=== PATIENT | male | born 1975 | race Caucasian/White ===

== ENCOUNTER 2017-02-15 13:25 | Emergency (ER) | payer BC, OTHER ==
[~2017-02-15] VITALS: Ht 180.3 cm; Wt 120.2 kg
[~2017-02-15 13:25] MED LIST: OXYC-323 PO; SULF1TAB23 PO
[2017-02-15] MEDS ORDERED: ONDANSETRON PF 4 MG/2 ML VIAL. IV ONE ×2 (13:45→14:15)
[2017-02-15] MEDS ORDERED: IV NORMAL SALINE 1000ML BAG 1,000 ML IV ONE (13:45)
[2017-02-15] MEDS ORDERED: MORPHINE SULFATE 10 MG/ML VIAL. IV ONE (13:45)
[2017-02-15 14:00] VITALS: BP 167/90
[2017-02-15 14:00] LABS: BASO % 0 % (0-3); EOS % 0 % (0-3); HEMATOCRIT 45.5 % (39.0-53.0); LYMPH # 2.1 x10^3/uL (1.0-4.8); LYMPH % 16 % (24-48); MEAN CORPUSCULAR HEMOGLOBIN 28 pg (25-35); MEAN CORPUSCULAR HGB CONC 33 g/dL (31-37); MEAN CORPUSCULAR VOLUME 84 fL (79-100); MONO % 3 % (0-9); NEUT % 80 % (31-73); PLATELET COUNT 292 x10^3/uL (140-400); RED BLOOD COUNT 5.41 x10^6/uL (4.30-5.70); RED CELL DISTRIBUTION WIDTH 14.3 % (11.5-14.5); WHITE BLOOD COUNT 13.5 x10^3/uL (4.0-11.0)
[2017-02-15] MEDS ORDERED: IOHEXOL 300 MG/ML 75 ML VIAL IV ONE (14:00)
[2017-02-15 14:13] LABS: CALCIUM 9.1 mg/dL (8.5-10.1); CREATININE 0.9 mg/dL (0.7-1.3); POTASSIUM 3.2 mmol/L (3.5-5.1)
[2017-02-15] MEDS ORDERED: PROMETHAZINE 12.5 MG in IV NORMAL SALINE 50ML 50 ML IV ONE (14:15)
[2017-02-15 14:17] LABS: ALBUMIN 3.8 g/dL (3.4-5.0); TOTAL BILIRUBIN 0.5 mg/dL (0.2-1.0); TOTAL PROTEIN 7.7 g/dL (6.4-8.2)
[2017-02-15] MEDS ORDERED: HYDROmorphone 2 MG/ML VIAL IV ONE ×3 (14:30→17:00)
--- NOTE | 2017-02-15 14:42 | PHYS DOC ---
Past Medical History Past Medical History: Kidney Stone Past Surgical History: Other Additional Past Surgical Histo: rectal, hernia, colostomy reversal Alcohol Use: None Drug Use: None Adult General Chief Complaint Chief Complaint: ABDOMINAL PAIN HPI HPI Patient is a 41 year old male who presents with right lower quadrant abdominal pain rated at 10 out of 10 with nausea and vomiting that began 3 days ago. Patient states sometime in November he had hernia repair and colon resection with colostomy removal at [facility]. Patient denies any fever. He states he has history of kidney stones. Review of Systems Review of Systems Constitutional: Denies fever or chills [] Eyes: Denies change in visual acuity, redness, or eye pain [] HENT: Denies nasal congestion or sore throat [] Respiratory: Denies cough or shortness of breath [] Cardiovascular: No additional information not addressed in HPI [] GI: Right lower quadrant abdominal pain : Denies dysuria or hematuria [] Musculoskeletal: Denies back pain or joint pain [] Integument: Denies rash or skin lesions [] Neurologic: Denies headache, focal weakness or sensory changes [] Endocrine: Denies polyuria or polydipsia [] Current Medications Current Medications Current Medications Medications (Trade) Dose Ordered Sig/Tayler Start Time Stop Time Status Last Admin Dose Admin Hydromorphone HCl (Dilaudid) 1 mg 1X ONCE 02/15/17 17:00 02/15/17 17:01 DC Iohexol (Omnipaque 300 Mg/ml) 75 ml 1X ONCE 02/15/17 14:00 02/15/17 14:01 DC 02/15/17 14:27 75 ML Morphine Sulfate 5 mg 1X ONCE 02/15/17 13:45 02/15/17 13:46 DC 02/15/17 13:54 5 MG Ondansetron HCl (Zofran) 4 mg 1X ONCE 02/15/17 14:15 02/15/17 14:16 DC 02/15/17 14:10 4 MG Promethazine HCl 12.5 mg/Sodium Chloride 50.5 ml @ 101 mls/hr 1X ONCE 02/15/17 14:15 02/15/17 14:44 DC 02/15/17 14:12 101 MLS/HR Sodium Chloride 1,000 ml @ 1,000 mls/hr 1X ONCE 02/15/17 13:45 02/15/17 14:44 DC 02/15/17 13:57 1,000 MLS/HR Tamsulosin HCl (Flomax) 0.4 mg 1X ONCE 02/15/17 17:00 02/15/17 17:01 DC Allergies Allergies Allergies Coded Allergies Type Severity Reaction Last Updated Verified No Known Drug Allergies 01/28/15 No Physical Exam Physical Exam Constitutional: Well developed, well nourished, patient is writhing in pain. He appears diaphoretic. HENT: Normocephalic, atraumatic, bilateral external ears normal, oropharynx moist, no oral exudates, nose normal. [] Eyes: PERRLA, EOMI, conjunctiva normal, no discharge. [] Neck: Normal range of motion, no tenderness, supple, no stridor. [] Cardiovascular:Heart rate regular rhythm, no murmur [] Lungs & Thorax: Bilateral breath sounds clear to auscultation [] Abdomen: Obese abdomen. Surgical incision noted me denied lower abdomen as well as left lower quadrant. Mild tenderness on palpation of the right mid abdomen and right lower quadrant. Negative Mata sign, negative psoas sign, negative obturator sign. Patient is guarding his flank region. No obvious abdominal masses. Skin: Warm, dry, no erythema, no rash. [] Back: No tenderness, no CVA tenderness. [] Extremities: No tenderness, no cyanosis, no clubbing, ROM intact, no edema. [] Neurologic: Alert and oriented X 3, normal motor function, normal sensory function, no focal deficits noted. [] Psychologic: Affect normal, judgement normal, mood normal. [] Current Patient Data Vital Signs Vital Signs Date Time Temp Pulse Resp B/P (MAP) Pulse Ox O2 Delivery O2 Flow Rate FiO2 02/15/17 15:16 Room Air 02/15/17 13:35 98.0 67 32 148/97 (114) 92 98.0 Lab Values Laboratory Tests Test 02/15/17 13:50 02/15/17 15:20 White Blood Count 13.5 x10^3/uL (4.0-11.0) H Red Blood Count 5.41 x10^6/uL (4.30-5.70) Hemoglobin 15.0 g/dL (13.0-17.5) Hematocrit 45.5 % (39.0-53.0) Mean Corpuscular Volume 84 fL (79-100) Mean Corpuscular Hemoglobin 28 pg (25-35) Mean Corpuscular Hemoglobin Concent 33 g/dL (31-37) Red Cell Distribution Width 14.3 % (11.5-14.5) Platelet Count 292 x10^3/uL (140-400) Neutrophils (%) (Auto) 80 % (31-73) H Lymphocytes (%) (Auto) 16 % (24-48) L Monocytes (%) (Auto) 3 % (0-9) Eosinophils (%) (Auto) 0 % (0-3) Basophils (%) (Auto) 0 % (0-3) Neutrophils # (Auto) 10.9 x10^3uL (1.8-7.7) H Lymphocytes # (Auto) 2.1 x10^3/uL (1.0-4.8) Monocytes # (Auto) 0.4 x10^3/uL (0.0-1.1) Eosinophils # (Auto) 0.0 x10^3/uL (0.0-0.7) Basophils # (Auto) 0.0 x10^3/uL (0.0-0.2) Sodium Level 143 mmol/L (136-145) Potassium Level 3.2 mmol/L (3.5-5.1) L Chloride Level 107 mmol/L (98-107) Carbon Dioxide Level 23 mmol/L (21-32) Anion Gap 13 (6-14) Blood Urea Nitrogen 9 mg/dL (8-26) Creatinine 0.9 mg/dL (0.7-1.3) Estimated GFR (Cockcroft-Gault) 93.0 BUN/Creatinine Ratio 10 (6-20) Glucose Level 133 mg/dL (70-99) H Calcium Level 9.1 mg/dL (8.5-10.1) Total Bilirubin 0.5 mg/dL (0.2-1.0) Aspartate Amino Transferase (AST) 17 U/L (15-37) Alanine Aminotransferase (ALT) 21 U/L (16-63) Alkaline Phosphatase 99 U/L (46-116) Total Protein 7.7 g/dL (6.4-8.2) Albumin 3.8 g/dL (3.4-5.0) Albumin/Globulin Ratio 1.0 (1.0-1.7) Ethyl Alcohol Level < 10 mg/dL (0-10) Urine Collection Type Unknown Urine Color Red Urine Clarity Cloudy Urine pH 5.5 Urine Specific [place] >=1.030 Urine Protein 100 mg/dL (NEG-TRACE) Urine Glucose (UA) Negative mg/dL (NEG) Urine Ketones (Stick) Trace mg/dL (NEG) Urine Blood Large (NEG) Urine Nitrite Negative (NEG) Urine Bilirubin Negative (NEG) Urine Urobilinogen Dipstick 0.2 mg/dL (0.2 mg/dL) Urine Leukocyte Esterase Small (NEG) Urine RBC Tntc /HPF (0-2) Urine WBC 5-10 /HPF (0-4) Urine Bacteria 0 /HPF (0-FEW) Urine Mucus Mod /LPF Urine Opiates Screen Pos (NEG) Urine Methadone Screen Neg (NEG) Urine Barbiturates Neg (NEG) Urine Phencyclidine Screen Neg (NEG) Urine Amphetamine/Methamphetamine Neg (NEG) Urine Benzodiazepines Screen Neg (NEG) Urine Cocaine Screen Neg (NEG) Urine Cannabinoids Screen Neg (NEG) Urine Ethyl Alcohol Neg (NEG) Laboratory Tests 02/15/17 13:50 Laboratory Tests 02/15/17 13:50 EKG EKG [] Radiology/Procedures Radiology/Procedures []PROCEDURE: CT ABD PELV W/ IV CONTRST ONLY CT of the abdomen and pelvis with contrast, 02/15/2017: History: Abdominal pain and weakness Multidetector CT imaging was performed following an IV bolus injection of iodinated contrast material. No oral contrast material was administered for this exam. No hepatic abnormality is detected. There are faint radiopacities, one of which is rim-like in configuration, within the dependent aspect of the gallbladder compatible with gallstones. No pericholecystic edema is seen. The pancreas is unremarkable. The spleen is of normal size. Two small intrarenal calculi are present on the left, the largest of which measures 4 mm. The left renal collecting system and left ureter are not dilated. On the right there is mild dilatation of the renal pelvis. This is due to a 4 mm calculus in the proximal right ureter located at the L3-4 level. The distal right ureter is unremarkable. The partially filled urinary bladder shows no abnormality. There is mild aortic calcific plaquing without evidence of aneurysm. No abdominal or pelvic adenopathy is seen. There are surgical sutures related to the mid sigmoid colon. There is a small diverticular-like outpouching at this level with sutures along its margins. The bowel loops are not dilated. The appendix is not visualized and may be surgically absent. No dilated appendix is seen. No free fluid or free air is evident in the abdomen or pelvis. A linear radiopacity in the anal region is probably a suture line. There is streaky increased density in the anterior abdominal wall near the midline and to the left of midline at the mid pelvic level.. This probably represents postsurgical scarring, although active inflammation cannot be excluded. No abnormal fluid collection is seen in these regions. There are moderate scattered degenerative changes in the spine. There is a mixed lytic and sclerotic process within the L3 vertebral body. This pattern of densities raises the possibility of a hemangioma. There is an associated disruption of the cortex posteriorly at the level of the basivertebral foramen, raising the possibility of an aggressive hemangioma. IMPRESSION: 1. Small obstructing calculus in the proximal right ureter. 2. Small nonobstructing intrarenal calculi on the left. 3. Cholelithiasis. 4. Postsurgical change involving the sigmoid colon with a small diverticular-type outpouching at the level of the suture line. 5. Postsurgical changes involving the anterior abdominal wall at the pelvic level. 6. Mixed lytic and sclerotic process in the L3 vertebral body raising the possibility of an aggressive hemangioma versus a metastasis. Given this patient's surgical history, he is likely to have had previous CT studies, and comparison with those exams if available would be most useful in evaluation of stability of this lesion. PQRS Compliance Statement: One or more of the following individualized dose reduction techniques were utilized for this examination: 1. Automated exposure control 2. Adjustment of the mA and/or kV according to patient size 3. Use of iterative reconstruction technique DICTATED and SIGNED BY: JORGE COLÓN MD DATE: 02/15/17 1183 CC: SANJUANA DOUGLASS APRN; NO PCP ~ Course & Med Decision Making Course & Med Decision Making Pertinent Labs and Imaging studies reviewed. (See chart for details) Patient is in the ED with right lower quadrant abdominal pain with nausea and vomiting that began 3 days ago. Patient was uncomfortable writhing in pain when he arrived. He was given morphine with no relief, he was given Dilaudid and Zofran and promethazine with very good relief. CBC with a WBC of 13.5, CMP lipase with no acute findings. Urine positive for large amount of blood and small amount of leukocytes. CT of the abdomen and pelvic results below IMPRESSION: 1. Small obstructing calculus in the proximal right ureter. 2. Small nonobstructing intrarenal calculi on the left. 3. Cholelithiasis. 4. Postsurgical change involving the sigmoid colon with a small diverticular-type outpouching at the level of the suture line. 5. Postsurgical changes involving the anterior abdominal wall at the pelvic level. 6. Mixed lytic and sclerotic process in the L3 vertebral body raising the possibility of an aggressive hemangioma versus a metastasis. Given this patient's surgical history, he is likely to have had previous CT studies, and comparison with those exams if available would be most useful in evaluation of stability of this lesion. Considering the above information I talked to patient about staying in the hospital. Patient states he has passed multiple kidney stones before and would like to be discharged with pain medicine and nausea medicine. Patient was discharged with oxycodone, Flomax promethazine and Zofran. He also given a prescription for Flomax. He is to follow-up with his own doctor or urologist excrete. He was instructed to return to the ED if symptoms worsen. Dragon Disclaimer Dragon Disclaimer This electronic medical record was generated, in whole or in part, using a voice recognition dictation system. Departure Departure Impression: Primary Impression: Pyelonephritis Additional Impressions: Kidney stone on left side Cholelithiasis Disposition: HOME, SELF-CARE Condition: STABLE Referrals: NO PCP (PCP) DEVON KOEHLER STEVE W MD Follow-up with your doctor or the provided urologist next week Patient Instructions: Kidney Stones, Pyelonephritis, Adult, [id number] Additional Instructions: You were seen for pyelonephritis and kidney stones. Please take the prescribed antibiotics to completion. Please come to the ED at any point symptoms worsen. Follow-up with your doctor on Saturday. Scripts Oxycodone/Apap 5-325 (PERCOCET 5-325 MG TABLET) 1 Each Tablet 1-2 TAB PO Q4-6HRS, #40 TAB Prov: SANJUANA DOUGLASS [employer] 02/15/17 Promethazine Hcl (PROMETHAZINE HCL) 25 Mg Tablet 1 TAB PO PRN Q6HRS, #20 TAB Prov: SANJUANA DOUGLASS APRN 02/15/17 Tamsulosin Hcl (FLOMAX) 0.4 Mg Cap.er.24h 1 CAP PO DAILY, #7 CAP 11 Refills Prov: SANJUANA DOUGLASS APRN 02/15/17 Ciprofloxacin Hcl (CIPRO) 500 Mg Tablet 1 TAB PO BID, #14 TAB Prov: SANJUANA DOUGLASS APRN 02/15/17 Ondansetron (ZOFRAN ODT) 4 Mg Tab.rapdis 1 TAB SL Q8HRS, #15 TAB Prov: SANJUANA DOUGLASS APRN 02/15/17 Problem Qualifiers Additional Impressions: Cholelithiasis Cholelithiasis location: gallbladder Cholecystitis presence: without cholecystitis Biliary obstruction: with biliary obstruction Qualified Codes: K80.21 - Calculus of gallbladder without cholecystitis with obstruction SANJUANA DOUGLASS APRN Feb 15, 2017 14:42
--- NOTE | 2017-02-15 15:16 | RAD ---
CT of the abdomen and pelvis with contrast, 02/15/2017: History: Abdominal pain and weakness Multidetector CT imaging was performed following an IV bolus injection of iodinated contrast material. No oral contrast material was administered for this exam. No hepatic abnormality is detected. There are faint radiopacities, one of which is rim-like in configuration, within the dependent aspect of the gallbladder compatible with gallstones. No pericholecystic edema is seen. The pancreas is unremarkable. The spleen is of normal size. Two small intrarenal calculi are present on the left, the largest of which measures 4 mm. The left renal collecting system and left ureter are not dilated. On the right there is mild dilatation of the renal pelvis. This is due to a 4 mm calculus in the proximal right ureter located at the L3-4 level. The distal right ureter is unremarkable. The partially filled urinary bladder shows no abnormality. There is mild aortic calcific plaquing without evidence of aneurysm. No abdominal or pelvic adenopathy is seen. There are surgical sutures related to the mid sigmoid colon. There is a small diverticular-like outpouching at this level with sutures along its margins. The bowel loops are not dilated. The appendix is not visualized and may be surgically absent. No dilated appendix is seen. No free fluid or free air is evident in the abdomen or pelvis. A linear radiopacity in the anal region is probably a suture line. There is streaky increased density in the anterior abdominal wall near the midline and to the left of midline at the mid pelvic level.. This probably represents postsurgical scarring, although active inflammation cannot be excluded. No abnormal fluid collection is seen in these regions. There are moderate scattered degenerative changes in the spine. There is a mixed lytic and sclerotic process within the L3 vertebral body. This pattern of densities raises the possibility of a hemangioma. There is an associated disruption of the cortex posteriorly at the level of the basivertebral foramen, raising the possibility of an aggressive hemangioma. IMPRESSION: 1. Small obstructing calculus in the proximal right ureter. 2. Small nonobstructing intrarenal calculi on the left. 3. Cholelithiasis. 4. Postsurgical change involving the sigmoid colon with a small diverticular-type outpouching at the level of the suture line. 5. Postsurgical changes involving the anterior abdominal wall at the pelvic level. 6. Mixed lytic and sclerotic process in the L3 vertebral body raising the possibility of an aggressive hemangioma versus a metastasis. Given this patient's surgical history, he is likely to have had previous CT studies, and comparison with those exams if available would be most useful in evaluation of stability of this lesion. PQRS Compliance Statement: One or more of the following individualized dose reduction techniques were utilized for this examination: 1. Automated exposure control 2. Adjustment of the mA and/or kV according to patient size 3. Use of iterative reconstruction technique
[2017-02-15 15:40] LABS: BARBITURATES NEG (NEG); BENZODIAZEPINES NEG (NEG); CANNABINOIDS NEG (NEG); COCAINE NEG (NEG); METHADONE NEG (NEG); OPIATES POS (NEG); PHENCYCLIDINE NEG (NEG)
[2017-02-15 15:46] LABS: BILIRUBIN,URINE NEGATIVE (NEG); GLUCOSE,URINE NEGATIVE (NEG); NITRITE,URINE NEGATIVE (NEG); PH,URINE 5.5; PROTEIN,URINE 100 mg/dL (NEG-TRACE); UROBILINOGEN,URINE 0.2 mg/dL (0.2 mg/dL)
[2017-02-15 15:54] LABS: BACTERIA,URINE 0 /HPF (0-FEW); RBC,URINE TNTC /HPF (0-2)
[2017-02-15] MEDS ORDERED: CIPR500T94 PO (16:57)
[2017-02-15] MEDS ORDERED: ONDA4TAB10 SL (16:57)
[2017-02-15] MEDS ORDERED: PROM25TA10 PO (16:57)
[2017-02-15] MEDS ORDERED: TAMS0.4C97 PO (16:57)
[2017-02-15] MEDS ORDERED: TAMSULOSIN 0.4 MG CAP.ER.24H. PO ONE (17:00)
[2017-02-15] MEDS ORDERED: OXYC-323 PO (17:03)
== END 2017-02-15 17:02 | disposition home or self-care (01) ==
LOC: ER 13:25
DX: N12 Tubulo-interstitial nephritis, not specified as acute or chronic (principal); K80.20 Calculus of gallbladder without cholecystitis without obstruction; N20.0 Calculus of kidney; Z93.3 Colostomy status; Z98.890 Other specified postprocedural states
CPT/HCPCS: 36415; 74177; 80053; 80305; 80320; 81001; 85027; 87086; 96365; 96375; 96376; 99285; G0480; J1170; J2270; J2405; J2550; J7030; Q9967; G0481

== ENCOUNTER 2017-02-17 13:24 | Inpatient (IN) | payer OTHER ==
[~2017-02-17] VITALS: Ht 180.3 cm; Wt 127.0 kg
[~2017-02-17 13:24] MED LIST changes: +CIPR500T94 PO; +ONDA4TAB10 SL; +PROM25TA10 PO; +TAMS0.4C97 PO
[2017-02-17] MEDS ORDERED: IV NORMAL SALINE 1000ML BAG 1,000 ML IV SCH (13:44)
[2017-02-17 14:01] LABS: BASO % 0 % (0-3); EOS % 0 % (0-3); HEMATOCRIT 42.5 % (39.0-53.0); LYMPH # 1.3 x10^3/uL (1.0-4.8); LYMPH % 9 % (24-48); MEAN CORPUSCULAR HEMOGLOBIN 28 pg (25-35); MEAN CORPUSCULAR HGB CONC 33 g/dL (31-37); MEAN CORPUSCULAR VOLUME 85 fL (79-100); MONO % 3 % (0-9); NEUT % 87 % (31-73); PLATELET COUNT 283 x10^3/uL (140-400); RED BLOOD COUNT 5.02 x10^6/uL (4.30-5.70); WHITE BLOOD COUNT 14.2 x10^3/uL (4.0-11.0)
[2017-02-17] MEDS: fentaNYL PF VIAL 100 MCG/2 ML VIAL IV PRN ×3 (14:03→15:17)
[2017-02-17 14:13] LABS: CALCIUM 8.8 mg/dL (8.5-10.1); GFR 82.3; POTASSIUM 3.8 mmol/L (3.5-5.1)
[2017-02-17 14:32] LABS: BILIRUBIN,URINE SMALL (NEG); GLUCOSE,URINE NEGATIVE (NEG); NITRITE,URINE NEGATIVE (NEG); PROTEIN,URINE 30 mg/dL (NEG-TRACE); UROBILINOGEN,URINE 0.2 mg/dL (0.2 mg/dL)
[2017-02-17 14:37] LABS: BACTERIA,URINE 0 /HPF (0-FEW); RBC,URINE 20-40 /HPF (0-2); WBC,URINE OCC /HPF (0-4)
[2017-02-17 14:48] LABS: % BASOS 1 % (0-3)
[2017-02-17 14:49] LABS: PLT ESTIMATE ADEQUATE (ADEQUATE)
--- NOTE | 2017-02-17 15:22 | PHYS DOC ---
Past Medical History Past Medical History: Kidney Stone Past Surgical History: Other Additional Past Surgical Histo: rectal, hernia, colostomy reversal Alcohol Use: None Drug Use: None Adult General Chief Complaint Chief Complaint: FLANK PAIN HPI HPI 41-year-old male presenting to the emergency department today with flank pain. His flank pain is on the right. His pain is sharp severe intermittent. It is not alleviated by oxycodone. No exacerbating factors. Associated with hematuria. He was diagnosed with a kidney stone recently however he returns after his oral pain medications were not helping. Review of systems is negative for chest pain shortness of breath. Positive for nausea without vomiting. All other review of systems is negative unless otherwise noted in history of present illness. ED course: 41-year-old male presenting to the emergency department with right flank pain. Symptomatology consistent with previously diagnosed nephrolithiasis. IV fluids and nausea and pain medication given. Review of Systems Review of Systems SEE ABOVE. Current Medications Current Medications Current Medications Medications (Trade) Dose Ordered Sig/Tayler Start Time Stop Time Status Last Admin Dose Admin Fentanyl Citrate (Fentanyl 2ml Vial) 25 mcg PRN Q15MIN PRN 02/17/17 13:45 02/18/17 13:44 02/17/17 15:17 25 MCG Sodium Chloride 1,000 ml @ 1,000 mls/hr Q1H 02/17/17 13:44 02/17/17 14:43 DC 02/17/17 14:03 1,000 MLS/HR Allergies Allergies Allergies Coded Allergies Type Severity Reaction Last Updated Verified No Known Drug Allergies 01/28/15 No Physical Exam Physical Exam Constitutional: Well developed, well nourished, no acute distress, non-toxic appearance. [] HENT: Normocephalic, atraumatic, bilateral external ears normal, oropharynx moist, no oral exudates, nose normal. Eyes: PERRLA, EOMI, conjunctiva normal, no discharge. [] Neck: Normal range of motion, no tenderness, supple, no stridor. Cardiovascular:Heart rate regular rhythm, no murmur [] Lungs & Thorax: Bilateral breath sounds clear to auscultation Abdomen: Bowel sounds normal, soft, no tenderness, no masses, no pulsatile masses. [] Skin: Warm, dry, no erythema, no rash. [] Back: No tenderness, right cva tenderness. Extremities: No tenderness, no cyanosis, no clubbing, ROM intact, no edema. Neurologic: Alert and oriented X 3, normal motor function, normal sensory function, no focal deficits noted. [] Psychologic: Affect normal, judgement normal, mood normal. [] Current Patient Data Vital Signs Vital Signs Date Time Temp Pulse Resp B/P (MAP) Pulse Ox O2 Delivery O2 Flow Rate FiO2 02/17/17 15:17 21 100 Room Air 02/17/17 13:36 97.7 74 157/90 (112) 97.7 Lab Values Laboratory Tests Test 02/17/17 13:25 02/17/17 13:50 Urine Collection Type Unknown Urine Color My[place]ha Urine Clarity Clear Urine pH 5.0 Urine Specific [place] >=1.030 Urine Protein 30 mg/dL (NEG-TRACE) Urine Glucose (UA) Negative mg/dL (NEG) Urine Ketones (Stick) Trace mg/dL (NEG) Urine Blood Large (NEG) Urine Nitrite Negative (NEG) Urine Bilirubin Small (NEG) Urine Urobilinogen Dipstick 0.2 mg/dL (0.2 mg/dL) Urine Leukocyte Esterase Negative (NEG) Urine RBC 20-40 /HPF (0-2) Urine WBC Occ /HPF (0-4) Urine Bacteria 0 /HPF (0-FEW) Urine Hyaline Casts Few /HPF Urine Mucus Marked /LPF White Blood Count 14.2 x10^3/uL (4.0-11.0) H Red Blood Count 5.02 x10^6/uL (4.30-5.70) Hemoglobin 14.0 g/dL (13.0-17.5) Hematocrit 42.5 % (39.0-53.0) Mean Corpuscular Volume 85 fL (79-100) Mean Corpuscular Hemoglobin 28 pg (25-35) Mean Corpuscular Hemoglobin Concent 33 g/dL (31-37) Red Cell Distribution Width 14.0 % (11.5-14.5) Platelet Count 283 x10^3/uL (140-400) Neutrophils (%) (Auto) 87 % (31-73) H Lymphocytes (%) (Auto) 9 % (24-48) L Monocytes (%) (Auto) 3 % (0-9) Eosinophils (%) (Auto) 0 % (0-3) Basophils (%) (Auto) 0 % (0-3) Neutrophils # (Auto) 12.3 x10^3uL (1.8-7.7) H Lymphocytes # (Auto) 1.3 x10^3/uL (1.0-4.8) Monocytes # (Auto) 0.5 x10^3/uL (0.0-1.1) Eosinophils # (Auto) 0.0 x10^3/uL (0.0-0.7) Basophils # (Auto) 0.0 x10^3/uL (0.0-0.2) Segmented Neutrophils % 81 % (35-66) H Lymphocytes % 16 % (24-48) L Monocytes % 2 % (0-10) Basophils % 1 % (0-3) Platelet Estimate Adequate (ADEQUATE) Sodium Level 141 mmol/L (136-145) Potassium Level 3.8 mmol/L (3.5-5.1) Chloride Level 107 mmol/L (98-107) Carbon Dioxide Level 23 mmol/L (21-32) Anion Gap 11 (6-14) Blood Urea Nitrogen 11 mg/dL (8-26) Creatinine 1.0 mg/dL (0.7-1.3) Estimated GFR (Cockcroft-Gault) 82.3 Glucose Level 110 mg/dL (70-99) H Calcium Level 8.8 mg/dL (8.5-10.1) Laboratory Tests 02/17/17 13:50 Laboratory Tests 02/17/17 13:50 EKG EKG [] Radiology/Procedures Radiology/Procedures [] Course & Med Decision Making Course & Med Decision Making Pertinent Labs and Imaging studies reviewed. (See chart for details) [] Dragon Disclaimer Dragon Disclaimer This electronic medical record was generated, in whole or in part, using a voice recognition dictation system. Departure Departure Impression: Primary Impression: Right nephrolithiasis Additional Impression: Severe pain Disposition: ADMITTED INPATIENT Admitting Physician: Diaz Faith Condition: STABLE Referrals: NO PCP (PCP) MICHAEL WEAVER MD Patient Instructions: Kidney Stones Problem Qualifiers SHANIQUA CANTU MD Feb 17, 2017 15:22
[2017-02-17] MEDS ORDERED: MORPHINE SULFATE 4 MG/ML DISP.SYRIN. IV PRN (16:00)
[2017-02-17] MEDS ORDERED: ONDANSETRON PF 4 MG/2 ML VIAL. IV PRN (16:00)
[2017-02-17 16:54] VITALS: BP 147/83
[2017-02-17] MEDS: IV NORMAL SALINE 1000ML BAG 1,000 ML IV SCH (17:00)
[2017-02-17] MEDS: HYDROmorphone 2 MG/ML VIAL IV PRN ×3 (17:29→22:07)
--- NOTE | 2017-02-17 17:59 | ACF ---
Admission Forms Criteria RENAL COLIC AND KIDNEY STONES Clinical Indications for Admission to Inpatient Care ( Place 'X' for any and all applicable criteria): Admission is indicated for ANY ONE of the following (1)(2)(3)(4): [X]I. Inpatient admission required rather than observation care (Also use Renal Colic and Kidney Stones: Observation Care Criteria as appropriate) because of ANY ONE of the following: [X]a) Severe pain requiring acute inpatient management [ ]b) Urinary tract infection identified [ ]c) Vomiting that is severe or persistent [ ]d) IV fluid required rather than oral rehydration to replace significant ongoing (eg, for greater than 24 hours) losses (greater than 200 mL/hr or 3 L/m2 per day) [ ]e) Percutaneous or open drainage (eg, abscess, biliary tract) procedures [ ]f) Other condition, treatment or monitoring requiring inpatient admission [ ]II. Impending acute renal failure [ ]III. Bilateral obstruction [ ]IV. Single kidney with obstruction [ ]V. Transplanted kidney with obstruction [ ]. Possible open surgical procedure needed (eg, pyonephrosis, stone removal not amendable to other means) [ ]VII. Hemodynamic instability Extended stay beyond goal length of stay may be needed for(2)(3)(31): [ ]a) Failed initial stone removal (32) [ ]b) Pyonephrosis [ ]c) Obstructive uropathy with urinary tract infection [ ]d) Procedure complications [ ]e) Comorbidities (22) The original [email or web address] content created by [employer] has been revised. The portions of the content which have been revised are identified through the use of italic text or in bold, and [facility] has neither reviewed nor approved the modified material. All other unmodified content is copyright [email or web address]. Please see references footnoted in the original [email or web address] edition 2016 Admission Criteria Met?: Yes EAMON MURPHY Feb 17, 2017 17:59
[2017-02-17 19:00] VITALS: BP 146/77
--- NOTE | 2017-02-17 20:31 | PDOC ---
PROGRESS NOTES Subjective Subjective Pt. with right ureteral stone Objective Objective Vital Signs Date Time Temp Pulse Resp B/P (MAP) Pulse Ox O2 Delivery O2 Flow Rate FiO2 02/17/17 20:00 Room Air 02/17/17 19:37 20 99 02/17/17 19:00 97.7 60 146/77 (100) 97.7 Physical Exam Physical Exam Mild right flank tenderness Plan Plan of Care Pt. with 4 mm right proximal ureteral stone with mild dilation of right renal pelvis I discussed the options, alternatives, benefits, risks, and possible complications of medical expulsive therapy vs. surgical intervention. Pt. would like to try medical expulsive therapy at this point. Problems Medical Problems: (1) Right nephrolithiasis Status: Acute (2) Severe pain Status: Acute Comment Review of Relevant I have reviewed the following items sofi (where applicable) has been applied. Labs Laboratory Tests Test 02/17/17 13:25 02/17/17 13:50 Urine Collection Type Unknown Urine Color Myesha Urine Clarity Clear Urine pH 5.0 Urine Specific [place] >=1.030 Urine Protein 30 mg/dL (NEG-TRACE) Urine Glucose (UA) Negative mg/dL (NEG) Urine Ketones (Stick) Trace mg/dL (NEG) Urine Blood Large (NEG) Urine Nitrite Negative (NEG) Urine Bilirubin Small (NEG) Urine Urobilinogen Dipstick 0.2 mg/dL (0.2 mg/dL) Urine Leukocyte Esterase Negative (NEG) Urine RBC 20-40 /HPF (0-2) Urine WBC Occ /HPF (0-4) Urine Bacteria 0 /HPF (0-FEW) Urine Hyaline Casts Few /HPF Urine Mucus Marked /LPF White Blood Count 14.2 x10^3/uL (4.0-11.0) Red Blood Count 5.02 x10^6/uL (4.30-5.70) Hemoglobin 14.0 g/dL (13.0-17.5) Hematocrit 42.5 % (39.0-53.0) Mean Corpuscular Volume 85 fL (79-100) Mean Corpuscular Hemoglobin 28 pg (25-35) Mean Corpuscular Hemoglobin Concent 33 g/dL (31-37) Red Cell Distribution Width 14.0 % (11.5-14.5) Platelet Count 283 x10^3/uL (140-400) Neutrophils (%) (Auto) 87 % (31-73) Lymphocytes (%) (Auto) 9 % (24-48) Monocytes (%) (Auto) 3 % (0-9) Eosinophils (%) (Auto) 0 % (0-3) Basophils (%) (Auto) 0 % (0-3) Neutrophils # (Auto) 12.3 x10^3uL (1.8-7.7) Lymphocytes # (Auto) 1.3 x10^3/uL (1.0-4.8) Monocytes # (Auto) 0.5 x10^3/uL (0.0-1.1) Eosinophils # (Auto) 0.0 x10^3/uL (0.0-0.7) Basophils # (Auto) 0.0 x10^3/uL (0.0-0.2) Segmented Neutrophils % 81 % (35-66) Lymphocytes % 16 % (24-48) Monocytes % 2 % (0-10) Basophils % 1 % (0-3) Platelet Estimate Adequate (ADEQUATE) Sodium Level 141 mmol/L (136-145) Potassium Level 3.8 mmol/L (3.5-5.1) Chloride Level 107 mmol/L (98-107) Carbon Dioxide Level 23 mmol/L (21-32) Anion Gap 11 (6-14) Blood Urea Nitrogen 11 mg/dL (8-26) Creatinine 1.0 mg/dL (0.7-1.3) Estimated GFR (Cockcroft-Gault) 82.3 Glucose Level 110 mg/dL (70-99) Calcium Level 8.8 mg/dL (8.5-10.1) Laboratory Tests Test 02/17/17 13:25 02/17/17 13:50 Urine Collection Type Unknown Urine Color Myesha Urine Clarity Clear Urine pH 5.0 Urine Specific [place] >=1.030 Urine Protein 30 mg/dL (NEG-TRACE) Urine Glucose (UA) Negative mg/dL (NEG) Urine Ketones (Stick) Trace mg/dL (NEG) Urine Blood Large (NEG) Urine Nitrite Negative (NEG) Urine Bilirubin Small (NEG) Urine Urobilinogen Dipstick 0.2 mg/dL (0.2 mg/dL) Urine Leukocyte Esterase Negative (NEG) Urine RBC 20-40 /HPF (0-2) Urine WBC Occ /HPF (0-4) Urine Bacteria 0 /HPF (0-FEW) Urine Hyaline Casts Few /HPF Urine Mucus Marked /LPF White Blood Count 14.2 x10^3/uL (4.0-11.0) Red Blood Count 5.02 x10^6/uL (4.30-5.70) Hemoglobin 14.0 g/dL (13.0-17.5) Hematocrit 42.5 % (39.0-53.0) Mean Corpuscular Volume 85 fL (79-100) Mean Corpuscular Hemoglobin 28 pg (25-35) Mean Corpuscular Hemoglobin Concent 33 g/dL (31-37) Red Cell Distribution Width 14.0 % (11.5-14.5) Platelet Count 283 x10^3/uL (140-400) Neutrophils (%) (Auto) 87 % (31-73) Lymphocytes (%) (Auto) 9 % (24-48) Monocytes (%) (Auto) 3 % (0-9) Eosinophils (%) (Auto) 0 % (0-3) Basophils (%) (Auto) 0 % (0-3) Neutrophils # (Auto) 12.3 x10^3uL (1.8-7.7) Lymphocytes # (Auto) 1.3 x10^3/uL (1.0-4.8) Monocytes # (Auto) 0.5 x10^3/uL (0.0-1.1) Eosinophils # (Auto) 0.0 x10^3/uL (0.0-0.7) Basophils # (Auto) 0.0 x10^3/uL (0.0-0.2) Segmented Neutrophils % 81 % (35-66) Lymphocytes % 16 % (24-48) Monocytes % 2 % (0-10) Basophils % 1 % (0-3) Platelet Estimate Adequate (ADEQUATE) Sodium Level 141 mmol/L (136-145) Potassium Level 3.8 mmol/L (3.5-5.1) Chloride Level 107 mmol/L (98-107) Carbon Dioxide Level 23 mmol/L (21-32) Anion Gap 11 (6-14) Blood Urea Nitrogen 11 mg/dL (8-26) Creatinine 1.0 mg/dL (0.7-1.3) Estimated GFR (Cockcroft-Gault) 82.3 Glucose Level 110 mg/dL (70-99) Calcium Level 8.8 mg/dL (8.5-10.1) Medications Current Medications Fentanyl Citrate (Fentanyl 2ml Vial) 25 mcg PRN Q15MIN PRN IV PAIN GREATER THAN 3/10 Last administered on 02/17/17 15:17; Start 02/17/17 at 13:45; Stop at 13:44 Sodium Chloride 1,000 ml @ 1,000 mls/hr Q1H IV Last administered on 02/17/17 14:03; Start 02/17/17 at 13:44; Stop 02/17/17 at 14:43; Status DC Ondansetron HCl (Zofran) 4 mg PRN Q8HRS PRN IV NAUSEA/VOMITING; Start 02/17/17 at 16:00; Stop 02/18/17 at 15:59 Morphine Sulfate 4 mg PRN Q2HR PRN IV PAIN Last administered on 02/17/17 16:59 ; Start 02/17/17 at 16:00; Stop 02/18/17 at 15:59 Sodium Chloride 1,000 ml @ 125 mls/hr Q8H IV Last administered on 02/17/17 17 :00; Start 02/17/17 at 15:51; Stop 02/18/17 at 15:50 Hydromorphone HCl (Dilaudid) 1 mg PRN Q2HRS PRN IV PAIN Last administered on 19:37; Start 02/17/17 at 17:15 Tamsulosin HCl (Flomax) 0.4 mg DAILY PO ; Start 02/18/17 at 09:00 Ceftriaxone Sodium 1 gm/ Sodium Chloride 50 ml @ 100 mls/hr Q24H IV Last administered on 02/17/17 17:56; Start 02/17/17 at 18:00 Sennosides (Senna) 8.6 mg PRN BID PRN PO CONSTIPATION; Start 02/17/17 at 20:15 Active Scripts Active Percocet 5-325 Mg Tablet (Oxycodone/Acetaminophen) 1 Each Tablet 1-2 Tab PO Q4- 6HRS Promethazine Hcl 25 Mg Tablet 1 Tab PO PRN Q6HRS Flomax (Tamsulosin Hcl) 0.4 Mg Cap.er.24h 1 Cap PO DAILY Cipro (Ciprofloxacin Hcl) 500 Mg Tablet 1 Tab PO BID Zofran Odt (Ondansetron) 4 Mg Tab.rapdis 1 Tab SL Q8HRS Reported Percocet 5-325 Mg Tablet (Oxycodone/Acetaminophen) 1 Each Tablet 1-2 Tab PO Q4- 6HRS Bactrim 400-80 Mg Tablet (Sulfamethoxazole/Trimethoprim) 1 Each Tablet Unknown Dose PO BID Vitals/I & O Vital Sign - Last 24 Hours 02/17/17 02/17/17 02/17/17 02/17/17 13:36 14:01 14:31 15:01 Temp 97.7 97.7 Pulse 74 72 64 64 Resp 28 20 18 16 B/P (MAP) 157/90 (112) 166/95 (118) 150/84 (106) 148/85 (106) Pulse Ox 99 100 96 99 O2 Delivery Room Air Room Air Room Air Room Air 02/17/17 02/17/17 02/17/17 02/17/17 15:17 15:31 16:01 16:31 Pulse 64 62 60 Resp 21 21 18 19 B/P (MAP) 155/82 (106) 146/78 (100) 140/99 (113) Pulse Ox 100 96 97 97 O2 Delivery Room Air Room Air Room Air Room Air 02/17/17 02/17/17 02/17/17 02/17/17 16:54 16:54 16:59 17:29 Temp 97.7 97.7 97.7 97.7 Pulse 63 63 Resp 20 20 B/P (MAP) 147/83 (104) 147/83 (104) Pulse Ox 99 99 O2 Delivery Room Air Room Air Room Air Room Air 02/17/17 02/17/17 02/17/17 02/17/17 17:30 18:00 19:00 19:37 Temp 97.7 97.7 Pulse 60 Resp 20 20 B/P (MAP) 146/77 (100) Pulse Ox 100 99 O2 Delivery Room Air Room Air Room Air 02/17/17 20:00 O2 Delivery Room Air LISA CASTAÑEDA MD Feb 17, 2017 20:31
[2017-02-17 23:00] VITALS: BP 138/78
[2017-02-18] MEDS: HYDROmorphone 2 MG/ML VIAL IV PRN ×5 (01:33→18:39)
[2017-02-18] MEDS: IV NORMAL SALINE 1000ML BAG 1,000 ML IV SCH ×3 (01:34→15:15)
--- NOTE | 2017-02-18 01:39 | HP ---
ADMIT DATE: 02/17/2017 CHIEF COMPLAINT: Acute flank pain. HISTORY OF PRESENT ILLNESS: The patient is a pleasant 41-year-old obese male, who has had a previous kidney stone. Once again, he presents with another kidney stone that is about 4 mm, causing pain and nausea, rated 7/10. I discussed the case with the ER physician. We are going to admit the patient with consultation, Dr. Matheus Ward. PAST MEDICAL HISTORY: Obesity, rectal wound apparently he had had diverting colostomy and he had a colostomy takedown back in November. ALLERGIES: None. FAMILY HISTORY: Hypertension. SOCIAL HISTORY: He is unemployed. He does not drink, smoke or take drugs. MEDICATIONS: Reviewed, please refer to the MRAD. REVIEW OF SYSTEMS: GENERAL: No history of weight change, weakness or fevers. SKIN: No bruising, hair changes or rashes. EYES: No blurred, double or loss of vision. NOSE AND THROAT: No history of nosebleeds, hoarseness or sore throat. HEART: No history of palpitations, chest pain or shortness of breath on exertion. LUNGS: Denies cough, hemoptysis, wheezing or shortness of breath. GASTROINTESTINAL: He complains of flank pain. GENITOURINARY: No history of frequency, urgency, hesitancy or nocturia. NEUROLOGIC: Denies history of numbness, tingling, tremor or weakness. PSYCHIATRIC: No history of panic, anxiety or depression. ENDOCRINE: No history of heat or cold intolerance, polyuria or polydipsia. EXTREMITIES: Denies muscle weakness, joint pain, pain on walking or stiffness. PHYSICAL EXAMINATION: VITAL SIGNS: Temperature afebrile, pulse 68, respirations 18, and blood pressure 144/97. GENERAL: He is alert and cooperative. HEART: Normal S1, S2. LUNGS: Clear. ABDOMEN: Soft. Decreased bowel sounds, tender in the left flanks. EXTREMITIES: 1+ edema. SKIN: No rashes. PSYCHIATRIC: He is depressed. VASCULAR: Good capillary refill. ENDOCRINE: No thyromegaly. LYMPHATICS: No cervical nodes. HEMATOPOIETIC: No bruising. LABORATORY DATA: Reviewed. ASSESSMENT AND PLAN: Kidney stone. The patient has been admitted. We will use IV morphine, IV fluids, drain his urine, and consult Dr. Ward. Continue home medicines. RENAL [facility] AGUILAR DO DR: Romel JOB#: [id number] / [id number]
[2017-02-18 03:00] VITALS: BP 147/89
[2017-02-18 04:34] LABS: BASO # 0.1 x10^3/uL (0.0-0.2); BASO % 1 % (0-3); EOS % 0 % (0-3); HEMATOCRIT 37.8 % (39.0-53.0); HEMOGLOBIN 12.5 g/dL (13.0-17.5); LYMPH # 2.1 x10^3/uL (1.0-4.8); LYMPH % 19 % (24-48); MEAN CORPUSCULAR HEMOGLOBIN 28 pg (25-35); MEAN CORPUSCULAR HGB CONC 33 g/dL (31-37); MEAN CORPUSCULAR VOLUME 84 fL (79-100); MONO % 8 % (0-9); NEUT % 73 % (31-73); PLATELET COUNT 213 x10^3/uL (140-400); RED CELL DISTRIBUTION WIDTH 14.2 % (11.5-14.5); WHITE BLOOD COUNT 11.1 x10^3/uL (4.0-11.0)
[2017-02-18 04:48] LABS: CALCIUM 8.4 mg/dL (8.5-10.1); CREATININE 1.1 mg/dL (0.7-1.3); GFR 73.8; POTASSIUM 3.6 mmol/L (3.5-5.1)
[2017-02-18 07:00] VITALS: BP 132/82
--- NOTE | 2017-02-18 07:41 | RAD ---
Indication: Right flank pain and right kidney stone. Time of exam 1944 hours. Correlation is made with recent CT study from 02/15/2017. There is a large amount of bowel gas identified throughout the abdomen. This does obscure the urinary tracts. There is a questionable calcific density noted in the distribution of the mid right ureter which may represent the calculus noted on recent CT. No pelvic calcifications are seen. No other abnormality is detected. Impression: Questionable calcific density noted in the distribution of the mid right ureter correlating with the stone noted on recent CT. No other abnormality is seen.
--- NOTE | 2017-02-18 07:54 | PDOC ---
PROGRESS NOTES Subjective Subjective Pt. feeling better today Objective Objective Vital Signs Date Time Temp Pulse Resp B/P (MAP) Pulse Ox O2 Delivery O2 Flow Rate FiO2 02/18/17 07:00 97.9 64 18 132/82 (99) 94 Room Air 97.9 Intake and Output 02/18/17 07:00 Intake Total 1200 ml Output Total 650 ml Balance 550 ml Intake Oral 350 ml IV Total 850 ml Output Urine Total 650 ml # Voids 1 Physical Exam Physical Exam Mild right flank pain Plan Plan of Care I discussed the options, alternatives, benefits, risks and possible complications of medical expulsive therapy vs. surgical intervention with ESWL or ureteroscopy and laser lithotripsy and stent. Pt. would like to try medical expulsive therapy. Plan to continue flomax and keep on antibiotic for 1 week and f/u with [facility] [place] urology group at [facility] in the next week. Problems Medical Problems: (1) Right nephrolithiasis Status: Acute (2) Severe pain Status: Acute Comment Review of Relevant I have reviewed the following items sofi (where applicable) has been applied. Labs Laboratory Tests Test 02/17/17 13:25 02/17/17 13:50 02/18/17 04:15 Urine Collection Type Unknown Urine Color Myesha Urine Clarity Clear Urine pH 5.0 Urine Specific [place] >=1.030 Urine Protein 30 mg/dL (NEG-TRACE) Urine Glucose (UA) Negative mg/dL (NEG) Urine Ketones (Stick) Trace mg/dL (NEG) Urine Blood Large (NEG) Urine Nitrite Negative (NEG) Urine Bilirubin Small (NEG) Urine Urobilinogen Dipstick 0.2 mg/dL (0.2 mg/dL) Urine Leukocyte Esterase Negative (NEG) Urine RBC 20-40 /HPF (0-2) Urine WBC Occ /HPF (0-4) Urine Bacteria 0 /HPF (0-FEW) Urine Hyaline Casts Few /HPF Urine Mucus Marked /LPF White Blood Count 14.2 x10^3/uL (4.0-11.0) 11.1 x10^3/uL (4.0-11.0) Red Blood Count 5.02 x10^6/uL (4.30-5.70) 4.50 x10^6/uL (4.30-5.70) Hemoglobin 14.0 g/dL (13.0-17.5) 12.5 g/dL (13.0-17.5) Hematocrit 42.5 % (39.0-53.0) 37.8 % (39.0-53.0) Mean Corpuscular Volume 85 fL (79-100) 84 fL (79-100) Mean Corpuscular Hemoglobin 28 pg (25-35) 28 pg (25-35) Mean Corpuscular Hemoglobin Concent 33 g/dL (31-37) 33 g/dL (31-37) Red Cell Distribution Width 14.0 % (11.5-14.5) 14.2 % (11.5-14.5) Platelet Count 283 x10^3/uL (140-400) 213 x10^3/uL (140-400) Neutrophils (%) (Auto) 87 % (31-73) 73 % (31-73) Lymphocytes (%) (Auto) 9 % (24-48) 19 % (24-48) Monocytes (%) (Auto) 3 % (0-9) 8 % (0-9) Eosinophils (%) (Auto) 0 % (0-3) 0 % (0-3) Basophils (%) (Auto) 0 % (0-3) 1 % (0-3) Neutrophils # (Auto) 12.3 x10^3uL (1.8-7.7) 8.0 x10^3uL (1.8-7.7) Lymphocytes # (Auto) 1.3 x10^3/uL (1.0-4.8) 2.1 x10^3/uL (1.0-4.8) Monocytes # (Auto) 0.5 x10^3/uL (0.0-1.1) 0.9 x10^3/uL (0.0-1.1) Eosinophils # (Auto) 0.0 x10^3/uL (0.0-0.7) 0.0 x10^3/uL (0.0-0.7) Basophils # (Auto) 0.0 x10^3/uL (0.0-0.2) 0.1 x10^3/uL (0.0-0.2) Segmented Neutrophils % 81 % (35-66) Lymphocytes % 16 % (24-48) Monocytes % 2 % (0-10) Basophils % 1 % (0-3) Platelet Estimate Adequate (ADEQUATE) Sodium Level 141 mmol/L (136-145) 141 mmol/L (136-145) Potassium Level 3.8 mmol/L (3.5-5.1) 3.6 mmol/L (3.5-5.1) Chloride Level 107 mmol/L (98-107) 107 mmol/L (98-107) Carbon Dioxide Level 23 mmol/L (21-32) 26 mmol/L (21-32) Anion Gap 11 (6-14) 8 (6-14) Blood Urea Nitrogen 11 mg/dL (8-26) 9 mg/dL (8-26) Creatinine 1.0 mg/dL (0.7-1.3) 1.1 mg/dL (0.7-1.3) Estimated GFR (Cockcroft-Gault) 82.3 73.8 Glucose Level 110 mg/dL (70-99) 92 mg/dL (70-99) Calcium Level 8.8 mg/dL (8.5-10.1) 8.4 mg/dL (8.5-10.1) Laboratory Tests Test 02/17/17 13:25 02/17/17 13:50 02/18/17 04:15 Urine Collection Type Unknown Urine Color Myesha Urine Clarity Clear Urine pH 5.0 Urine Specific [place] >=1.030 Urine Protein 30 mg/dL (NEG-TRACE) Urine Glucose (UA) Negative mg/dL (NEG) Urine Ketones (Stick) Trace mg/dL (NEG) Urine Blood Large (NEG) Urine Nitrite Negative (NEG) Urine Bilirubin Small (NEG) Urine Urobilinogen Dipstick 0.2 mg/dL (0.2 mg/dL) Urine Leukocyte Esterase Negative (NEG) Urine RBC 20-40 /HPF (0-2) Urine WBC Occ /HPF (0-4) Urine Bacteria 0 /HPF (0-FEW) Urine Hyaline Casts Few /HPF Urine Mucus Marked /LPF White Blood Count 14.2 x10^3/uL (4.0-11.0) 11.1 x10^3/uL (4.0-11.0) Red Blood Count 5.02 x10^6/uL (4.30-5.70) 4.50 x10^6/uL (4.30-5.70) Hemoglobin 14.0 g/dL (13.0-17.5) 12.5 g/dL (13.0-17.5) Hematocrit 42.5 % (39.0-53.0) 37.8 % (39.0-53.0) Mean Corpuscular Volume 85 fL (79-100) 84 fL (79-100) Mean Corpuscular Hemoglobin 28 pg (25-35) 28 pg (25-35) Mean Corpuscular Hemoglobin Concent 33 g/dL (31-37) 33 g/dL (31-37) Red Cell Distribution Width 14.0 % (11.5-14.5) 14.2 % (11.5-14.5) Platelet Count 283 x10^3/uL (140-400) 213 x10^3/uL (140-400) Neutrophils (%) (Auto) 87 % (31-73) 73 % (31-73) Lymphocytes (%) (Auto) 9 % (24-48) 19 % (24-48) Monocytes (%) (Auto) 3 % (0-9) 8 % (0-9) Eosinophils (%) (Auto) 0 % (0-3) 0 % (0-3) Basophils (%) (Auto) 0 % (0-3) 1 % (0-3) Neutrophils # (Auto) 12.3 x10^3uL (1.8-7.7) 8.0 x10^3uL (1.8-7.7) Lymphocytes # (Auto) 1.3 x10^3/uL (1.0-4.8) 2.1 x10^3/uL (1.0-4.8) Monocytes # (Auto) 0.5 x10^3/uL (0.0-1.1) 0.9 x10^3/uL (0.0-1.1) Eosinophils # (Auto) 0.0 x10^3/uL (0.0-0.7) 0.0 x10^3/uL (0.0-0.7) Basophils # (Auto) 0.0 x10^3/uL (0.0-0.2) 0.1 x10^3/uL (0.0-0.2) Segmented Neutrophils % 81 % (35-66) Lymphocytes % 16 % (24-48) Monocytes % 2 % (0-10) Basophils % 1 % (0-3) Platelet Estimate Adequate (ADEQUATE) Sodium Level 141 mmol/L (136-145) 141 mmol/L (136-145) Potassium Level 3.8 mmol/L (3.5-5.1) 3.6 mmol/L (3.5-5.1) Chloride Level 107 mmol/L (98-107) 107 mmol/L (98-107) Carbon Dioxide Level 23 mmol/L (21-32) 26 mmol/L (21-32) Anion Gap 11 (6-14) 8 (6-14) Blood Urea Nitrogen 11 mg/dL (8-26) 9 mg/dL (8-26) Creatinine 1.0 mg/dL (0.7-1.3) 1.1 mg/dL (0.7-1.3) Estimated GFR (Cockcroft-Gault) 82.3 73.8 Glucose Level 110 mg/dL (70-99) 92 mg/dL (70-99) Calcium Level 8.8 mg/dL (8.5-10.1) 8.4 mg/dL (8.5-10.1) Medications Current Medications Fentanyl Citrate (Fentanyl 2ml Vial) 25 mcg PRN Q15MIN PRN IV PAIN GREATER THAN 3/10 Last administered on 02/17/17 15:17; Start 02/17/17 at 13:45; Stop at 13:44 Sodium Chloride 1,000 ml @ 1,000 mls/hr Q1H IV Last administered on 02/17/17 14:03; Start 02/17/17 at 13:44; Stop 02/17/17 at 14:43; Status DC Ondansetron HCl (Zofran) 4 mg PRN Q8HRS PRN IV NAUSEA/VOMITING; Start 02/17/17 at 16:00; Stop 02/18/17 at 15:59 Morphine Sulfate 4 mg PRN Q2HR PRN IV PAIN Last administered on 02/17/17 16:59 ; Start 02/17/17 at 16:00; Stop 02/18/17 at 15:59 Sodium Chloride 1,000 ml @ 125 mls/hr Q8H IV Last administered on 02/18/17 01 :34; Start 02/17/17 at 15:51; Stop 02/18/17 at 15:50 Hydromorphone HCl (Dilaudid) 1 mg PRN Q2HRS PRN IV PAIN Last administered on 01:33; Start 02/17/17 at 17:15 Tamsulosin HCl (Flomax) 0.4 mg DAILY PO ; Start 02/18/17 at 09:00 Ceftriaxone Sodium 1 gm/ Sodium Chloride 50 ml @ 100 mls/hr Q24H IV Last administered on 02/17/17 17:56; Start 02/17/17 at 18:00 Sennosides (Senna) 8.6 mg PRN BID PRN PO CONSTIPATION; Start 02/17/17 at 20:15 Active Scripts Active Percocet 5-325 Mg Tablet (Oxycodone/Acetaminophen) 1 Each Tablet 1-2 Tab PO Q4- 6HRS Promethazine Hcl 25 Mg Tablet 1 Tab PO PRN Q6HRS Flomax (Tamsulosin Hcl) 0.4 Mg Cap.er.24h 1 Cap PO DAILY Cipro (Ciprofloxacin Hcl) 500 Mg Tablet 1 Tab PO BID Zofran Odt (Ondansetron) 4 Mg Tab.rapdis 1 Tab SL Q8HRS Reported Percocet 5-325 Mg Tablet (Oxycodone/Acetaminophen) 1 Each Tablet 1-2 Tab PO Q4- 6HRS Bactrim 400-80 Mg Tablet (Sulfamethoxazole/Trimethoprim) 1 Each Tablet Unknown Dose PO BID Vitals/I & O Vital Sign - Last 24 Hours 02/17/17 02/17/17 02/17/17 02/17/17 13:36 14:01 14:31 15:01 Temp 97.7 97.7 Pulse 74 72 64 64 Resp 28 20 18 16 B/P (MAP) 157/90 (112) 166/95 (118) 150/84 (106) 148/85 (106) Pulse Ox 99 100 96 99 O2 Delivery Room Air Room Air Room Air Room Air 02/17/17 02/17/17 02/17/17 02/17/17 15:17 15:31 16:01 16:31 Pulse 64 62 60 Resp 21 21 18 19 B/P (MAP) 155/82 (106) 146/78 (100) 140/99 (113) Pulse Ox 100 96 97 97 O2 Delivery Room Air Room Air Room Air Room Air 02/17/17 02/17/17 02/17/17 02/17/17 16:54 16:54 16:59 17:29 Temp 97.7 97.7 97.7 97.7 Pulse 63 63 Resp 20 20 B/P (MAP) 147/83 (104) 147/83 (104) Pulse Ox 99 99 O2 Delivery Room Air Room Air Room Air Room Air 02/17/17 02/17/17 02/17/17 02/17/17 17:30 19:00 19:37 20:00 Temp 97.7 97.7 Pulse 60 Resp 20 20 B/P (MAP) 146/77 (100) Pulse Ox 100 99 O2 Delivery Room Air Room Air Room Air 02/17/17 02/17/17 02/18/17 02/18/17 22:07 23:00 01:33 02:03 Temp 98.6 98.6 Pulse 58 Resp 20 18 20 20 B/P (MAP) 138/78 (98) Pulse Ox 99 94 94 96 O2 Delivery Room Air Room Air Room Air Room Air 02/18/17 02/18/17 03:00 07:00 Temp 98.1 97.9 98.1 97.9 Pulse 61 64 Resp 18 18 B/P (MAP) 147/89 (108) 132/82 (99) Pulse Ox 96 94 O2 Delivery Room Air Room Air Intake and Output 02/17/17 02/17/17 02/18/17 15:00 23:00 07:00 Intake Total 200 ml 1000 ml Output Total 250 ml 400 ml Balance -50 ml 600 ml LISA CASTAÑEDA MD Feb 18, 2017 07:54
[2017-02-18] MEDS: TAMSULOSIN 0.4 MG CAP.ER.24H. PO SCH (08:32)
[2017-02-18] MEDS ORDERED: fentaNYL PF VIAL 100 MCG/2 ML VIAL IV PRN (09:15)
[2017-02-18] MEDS: SENNOSIDES 8.6 MG TABLET PO PRN (10:34)
[2017-02-18 11:00] VITALS: BP 144/76
--- NOTE | 2017-02-18 12:19 | PDOC ---
PROGRESS NOTES Chief Complaint Chief Complaint flank pain renal colic, renal stone intractable pain, req. freq. IV pain meds treated for UTI, Uro wants abx to continue obesity, BMI 39 History of Present Illness History of Present Illness pain a little better Uro eval, plan medical tx, cont current Vitals Vitals Vital Signs Date Time Temp Pulse Resp B/P (MAP) Pulse Ox O2 Delivery O2 Flow Rate FiO2 02/18/17 12:06 Room Air 02/18/17 11:00 98.9 59 18 144/76 (98) 96 98.9 Physical Exam General: Alert, Oriented X3, Cooperative, mild distress (pain 5/10) Heart: Regular rate Lungs: Clear, Wheezing Abdomen: Soft (obese, r flank TTP) Extremities: No clubbing Skin: No rashes Labs LABS Laboratory Tests Test 02/17/17 13:25 02/17/17 13:50 02/18/17 04:15 Urine Collection Type Unknown Urine Color Myesha Urine Clarity Clear Urine pH 5.0 Urine Specific [place] >=1.030 Urine Protein 30 mg/dL (NEG-TRACE) Urine Glucose (UA) Negative mg/dL (NEG) Urine Ketones (Stick) Trace mg/dL (NEG) Urine Blood Large (NEG) Urine Nitrite Negative (NEG) Urine Bilirubin Small (NEG) Urine Urobilinogen Dipstick 0.2 mg/dL (0.2 mg/dL) Urine Leukocyte Esterase Negative (NEG) Urine RBC 20-40 /HPF (0-2) Urine WBC Occ /HPF (0-4) Urine Bacteria 0 /HPF (0-FEW) Urine Hyaline Casts Few /HPF Urine Mucus Marked /LPF White Blood Count 14.2 x10^3/uL (4.0-11.0) 11.1 x10^3/uL (4.0-11.0) Red Blood Count 5.02 x10^6/uL (4.30-5.70) 4.50 x10^6/uL (4.30-5.70) Hemoglobin 14.0 g/dL (13.0-17.5) 12.5 g/dL (13.0-17.5) Hematocrit 42.5 % (39.0-53.0) 37.8 % (39.0-53.0) Mean Corpuscular Volume 85 fL (79-100) 84 fL (79-100) Mean Corpuscular Hemoglobin 28 pg (25-35) 28 pg (25-35) Mean Corpuscular Hemoglobin Concent 33 g/dL (31-37) 33 g/dL (31-37) Red Cell Distribution Width 14.0 % (11.5-14.5) 14.2 % (11.5-14.5) Platelet Count 283 x10^3/uL (140-400) 213 x10^3/uL (140-400) Neutrophils (%) (Auto) 87 % (31-73) 73 % (31-73) Lymphocytes (%) (Auto) 9 % (24-48) 19 % (24-48) Monocytes (%) (Auto) 3 % (0-9) 8 % (0-9) Eosinophils (%) (Auto) 0 % (0-3) 0 % (0-3) Basophils (%) (Auto) 0 % (0-3) 1 % (0-3) Neutrophils # (Auto) 12.3 x10^3uL (1.8-7.7) 8.0 x10^3uL (1.8-7.7) Lymphocytes # (Auto) 1.3 x10^3/uL (1.0-4.8) 2.1 x10^3/uL (1.0-4.8) Monocytes # (Auto) 0.5 x10^3/uL (0.0-1.1) 0.9 x10^3/uL (0.0-1.1) Eosinophils # (Auto) 0.0 x10^3/uL (0.0-0.7) 0.0 x10^3/uL (0.0-0.7) Basophils # (Auto) 0.0 x10^3/uL (0.0-0.2) 0.1 x10^3/uL (0.0-0.2) Segmented Neutrophils % 81 % (35-66) Lymphocytes % 16 % (24-48) Monocytes % 2 % (0-10) Basophils % 1 % (0-3) Platelet Estimate Adequate (ADEQUATE) Sodium Level 141 mmol/L (136-145) 141 mmol/L (136-145) Potassium Level 3.8 mmol/L (3.5-5.1) 3.6 mmol/L (3.5-5.1) Chloride Level 107 mmol/L (98-107) 107 mmol/L (98-107) Carbon Dioxide Level 23 mmol/L (21-32) 26 mmol/L (21-32) Anion Gap 11 (6-14) 8 (6-14) Blood Urea Nitrogen 11 mg/dL (8-26) 9 mg/dL (8-26) Creatinine 1.0 mg/dL (0.7-1.3) 1.1 mg/dL (0.7-1.3) Estimated GFR (Cockcroft-Gault) 82.3 73.8 Glucose Level 110 mg/dL (70-99) 92 mg/dL (70-99) Calcium Level 8.8 mg/dL (8.5-10.1) 8.4 mg/dL (8.5-10.1) Review of Systems Review of Systems flank pain poor po intake urine still straw colored Assessment and Plan Assessmemt and Plan Problems Medical Problems: (1) Right nephrolithiasis Status: Acute (2) Severe pain Status: Acute Problems: Comment Review of Relevant I have reviewed the following items sofi (where applicable) has been applied. Labs Laboratory Tests Test 02/17/17 13:25 02/17/17 13:50 02/18/17 04:15 Urine Collection Type Unknown Urine Color Myesha Urine Clarity Clear Urine pH 5.0 Urine Specific [place] >=1.030 Urine Protein 30 mg/dL (NEG-TRACE) Urine Glucose (UA) Negative mg/dL (NEG) Urine Ketones (Stick) Trace mg/dL (NEG) Urine Blood Large (NEG) Urine Nitrite Negative (NEG) Urine Bilirubin Small (NEG) Urine Urobilinogen Dipstick 0.2 mg/dL (0.2 mg/dL) Urine Leukocyte Esterase Negative (NEG) Urine RBC 20-40 /HPF (0-2) Urine WBC Occ /HPF (0-4) Urine Bacteria 0 /HPF (0-FEW) Urine Hyaline Casts Few /HPF Urine Mucus Marked /LPF White Blood Count 14.2 x10^3/uL (4.0-11.0) 11.1 x10^3/uL (4.0-11.0) Red Blood Count 5.02 x10^6/uL (4.30-5.70) 4.50 x10^6/uL (4.30-5.70) Hemoglobin 14.0 g/dL (13.0-17.5) 12.5 g/dL (13.0-17.5) Hematocrit 42.5 % (39.0-53.0) 37.8 % (39.0-53.0) Mean Corpuscular Volume 85 fL (79-100) 84 fL (79-100) Mean Corpuscular Hemoglobin 28 pg (25-35) 28 pg (25-35) Mean Corpuscular Hemoglobin Concent 33 g/dL (31-37) 33 g/dL (31-37) Red Cell Distribution Width 14.0 % (11.5-14.5) 14.2 % (11.5-14.5) Platelet Count 283 x10^3/uL (140-400) 213 x10^3/uL (140-400) Neutrophils (%) (Auto) 87 % (31-73) 73 % (31-73) Lymphocytes (%) (Auto) 9 % (24-48) 19 % (24-48) Monocytes (%) (Auto) 3 % (0-9) 8 % (0-9) Eosinophils (%) (Auto) 0 % (0-3) 0 % (0-3) Basophils (%) (Auto) 0 % (0-3) 1 % (0-3) Neutrophils # (Auto) 12.3 x10^3uL (1.8-7.7) 8.0 x10^3uL (1.8-7.7) Lymphocytes # (Auto) 1.3 x10^3/uL (1.0-4.8) 2.1 x10^3/uL (1.0-4.8) Monocytes # (Auto) 0.5 x10^3/uL (0.0-1.1) 0.9 x10^3/uL (0.0-1.1) Eosinophils # (Auto) 0.0 x10^3/uL (0.0-0.7) 0.0 x10^3/uL (0.0-0.7) Basophils # (Auto) 0.0 x10^3/uL (0.0-0.2) 0.1 x10^3/uL (0.0-0.2) Segmented Neutrophils % 81 % (35-66) Lymphocytes % 16 % (24-48) Monocytes % 2 % (0-10) Basophils % 1 % (0-3) Platelet Estimate Adequate (ADEQUATE) Sodium Level 141 mmol/L (136-145) 141 mmol/L (136-145) Potassium Level 3.8 mmol/L (3.5-5.1) 3.6 mmol/L (3.5-5.1) Chloride Level 107 mmol/L (98-107) 107 mmol/L (98-107) Carbon Dioxide Level 23 mmol/L (21-32) 26 mmol/L (21-32) Anion Gap 11 (6-14) 8 (6-14) Blood Urea Nitrogen 11 mg/dL (8-26) 9 mg/dL (8-26) Creatinine 1.0 mg/dL (0.7-1.3) 1.1 mg/dL (0.7-1.3) Estimated GFR (Cockcroft-Gault) 82.3 73.8 Glucose Level 110 mg/dL (70-99) 92 mg/dL (70-99) Calcium Level 8.8 mg/dL (8.5-10.1) 8.4 mg/dL (8.5-10.1) Laboratory Tests Test 02/17/17 13:25 02/17/17 13:50 02/18/17 04:15 Urine Collection Type Unknown Urine Color Myesha Urine Clarity Clear Urine pH 5.0 Urine Specific [place] >=1.030 Urine Protein 30 mg/dL (NEG-TRACE) Urine Glucose (UA) Negative mg/dL (NEG) Urine Ketones (Stick) Trace mg/dL (NEG) Urine Blood Large (NEG) Urine Nitrite Negative (NEG) Urine Bilirubin Small (NEG) Urine Urobilinogen Dipstick 0.2 mg/dL (0.2 mg/dL) Urine Leukocyte Esterase Negative (NEG) Urine RBC 20-40 /HPF (0-2) Urine WBC Occ /HPF (0-4) Urine Bacteria 0 /HPF (0-FEW) Urine Hyaline Casts Few /HPF Urine Mucus Marked /LPF White Blood Count 14.2 x10^3/uL (4.0-11.0) 11.1 x10^3/uL (4.0-11.0) Red Blood Count 5.02 x10^6/uL (4.30-5.70) 4.50 x10^6/uL (4.30-5.70) Hemoglobin 14.0 g/dL (13.0-17.5) 12.5 g/dL (13.0-17.5) Hematocrit 42.5 % (39.0-53.0) 37.8 % (39.0-53.0) Mean Corpuscular Volume 85 fL (79-100) 84 fL (79-100) Mean Corpuscular Hemoglobin 28 pg (25-35) 28 pg (25-35) Mean Corpuscular Hemoglobin Concent 33 g/dL (31-37) 33 g/dL (31-37) Red Cell Distribution Width 14.0 % (11.5-14.5) 14.2 % (11.5-14.5) Platelet Count 283 x10^3/uL (140-400) 213 x10^3/uL (140-400) Neutrophils (%) (Auto) 87 % (31-73) 73 % (31-73) Lymphocytes (%) (Auto) 9 % (24-48) 19 % (24-48) Monocytes (%) (Auto) 3 % (0-9) 8 % (0-9) Eosinophils (%) (Auto) 0 % (0-3) 0 % (0-3) Basophils (%) (Auto) 0 % (0-3) 1 % (0-3) Neutrophils # (Auto) 12.3 x10^3uL (1.8-7.7) 8.0 x10^3uL (1.8-7.7) Lymphocytes # (Auto) 1.3 x10^3/uL (1.0-4.8) 2.1 x10^3/uL (1.0-4.8) Monocytes # (Auto) 0.5 x10^3/uL (0.0-1.1) 0.9 x10^3/uL (0.0-1.1) Eosinophils # (Auto) 0.0 x10^3/uL (0.0-0.7) 0.0 x10^3/uL (0.0-0.7) Basophils # (Auto) 0.0 x10^3/uL (0.0-0.2) 0.1 x10^3/uL (0.0-0.2) Segmented Neutrophils % 81 % (35-66) Lymphocytes % 16 % (24-48) Monocytes % 2 % (0-10) Basophils % 1 % (0-3) Platelet Estimate Adequate (ADEQUATE) Sodium Level 141 mmol/L (136-145) 141 mmol/L (136-145) Potassium Level 3.8 mmol/L (3.5-5.1) 3.6 mmol/L (3.5-5.1) Chloride Level 107 mmol/L (98-107) 107 mmol/L (98-107) Carbon Dioxide Level 23 mmol/L (21-32) 26 mmol/L (21-32) Anion Gap 11 (6-14) 8 (6-14) Blood Urea Nitrogen 11 mg/dL (8-26) 9 mg/dL (8-26) Creatinine 1.0 mg/dL (0.7-1.3) 1.1 mg/dL (0.7-1.3) Estimated GFR (Cockcroft-Gault) 82.3 73.8 Glucose Level 110 mg/dL (70-99) 92 mg/dL (70-99) Calcium Level 8.8 mg/dL (8.5-10.1) 8.4 mg/dL (8.5-10.1) Medications Current Medications Fentanyl Citrate (Fentanyl 2ml Vial) 25 mcg PRN Q15MIN PRN IV PAIN GREATER THAN 3/10 Last administered on 02/17/17 15:17; Start 02/17/17 at 13:45; Stop at 09:09; Status DC Sodium Chloride 1,000 ml @ 1,000 mls/hr Q1H IV Last administered on 02/17/17 14:03; Start 02/17/17 at 13:44; Stop 02/17/17 at 14:43; Status DC Ondansetron HCl (Zofran) 4 mg PRN Q8HRS PRN IV NAUSEA/VOMITING; Start 02/17/17 at 16:00; Stop 02/18/17 at 15:59 Morphine Sulfate 4 mg PRN Q2HR PRN IV PAIN Last administered on 02/17/17 16:59 ; Start 02/17/17 at 16:00; Stop 02/18/17 at 15:59 Sodium Chloride 1,000 ml @ 125 mls/hr Q8H IV Last administered on 02/18/17 07 :58; Start 02/17/17 at 15:51; Stop 02/18/17 at 15:50 Hydromorphone HCl (Dilaudid) 1 mg PRN Q2HRS PRN IV PAIN Last administered on 10:27; Start 02/17/17 at 17:15 Tamsulosin HCl (Flomax) 0.4 mg DAILY PO Last administered on 02/18/17 08:32; Start 02/18/17 at 09:00 Ceftriaxone Sodium 1 gm/ Sodium Chloride 50 ml @ 100 mls/hr Q24H IV Last administered on 02/17/17 17:56; Start 02/17/17 at 18:00 Sennosides (Senna) 8.6 mg PRN BID PRN PO CONSTIPATION Last administered on 02/18 10:34; Start 02/17/17 at 20:15 Fentanyl Citrate (Fentanyl 2ml Vial) 50 mcg PRN Q15MIN PRN IV PAIN GREATER THAN 3/10; Start 02/18/17 at 09:15 Oxycodone/ Acetaminophen (Percocet 7.5/ 325) 1 tab PRN Q4HRS PRN PO PAIN; Start 02/18/17 at 12:15 Active Scripts Active Percocet 5-325 Mg Tablet (Oxycodone/Acetaminophen) 1 Each Tablet 1-2 Tab PO Q4- 6HRS Promethazine Hcl 25 Mg Tablet 1 Tab PO PRN Q6HRS Flomax (Tamsulosin Hcl) 0.4 Mg Cap.er.24h 1 Cap PO DAILY Cipro (Ciprofloxacin Hcl) 500 Mg Tablet 1 Tab PO BID Zofran Odt (Ondansetron) 4 Mg Tab.rapdis 1 Tab SL Q8HRS Reported Percocet 5-325 Mg Tablet (Oxycodone/Acetaminophen) 1 Each Tablet 1-2 Tab PO Q4- 6HRS Bactrim 400-80 Mg Tablet (Sulfamethoxazole/Trimethoprim) 1 Each Tablet Unknown Dose PO BID Vitals/I & O Vital Sign - Last 24 Hours 02/17/17 02/17/17 02/17/17 02/17/17 13:36 14:01 14:31 15:01 Temp 97.7 97.7 Pulse 74 72 64 64 Resp 28 20 18 16 B/P (MAP) 157/90 (112) 166/95 (118) 150/84 (106) 148/85 (106) Pulse Ox 99 100 96 99 O2 Delivery Room Air Room Air Room Air Room Air 02/17/17 02/17/17 02/17/17 02/17/17 15:17 15:31 16:01 16:31 Pulse 64 62 60 Resp 21 21 18 19 B/P (MAP) 155/82 (106) 146/78 (100) 140/99 (113) Pulse Ox 100 96 97 97 O2 Delivery Room Air Room Air Room Air Room Air 02/17/17 02/17/17 02/17/17 02/17/17 16:54 16:54 16:59 17:29 Temp 97.7 97.7 97.7 97.7 Pulse 63 63 Resp 20 20 B/P (MAP) 147/83 (104) 147/83 (104) Pulse Ox 99 99 O2 Delivery Room Air Room Air Room Air Room Air 02/17/17 02/17/17 02/17/17 02/17/17 17:30 19:00 19:37 20:00 Temp 97.7 97.7 Pulse 60 Resp 20 20 B/P (MAP) 146/77 (100) Pulse Ox 100 99 O2 Delivery Room Air Room Air Room Air 02/17/17 02/17/17 02/18/17 02/18/17 22:07 23:00 01:33 02:03 Temp 98.6 98.6 Pulse 58 Resp 20 18 20 20 B/P (MAP) 138/78 (98) Pulse Ox 99 94 94 96 O2 Delivery Room Air Room Air Room Air 02/18/17 02/18/17 02/18/17 02/18/17 03:00 07:00 07:53 08:00 Temp 98.1 97.9 98.1 97.9 Pulse 61 64 Resp 18 18 B/P (MAP) 147/89 (108) 132/82 (99) Pulse Ox 96 94 O2 Delivery Room Air Room Air Room Air Room Air 02/18/17 02/18/17 02/18/17 10:27 11:00 12:06 Temp 98.9 98.9 Pulse 59 Resp 18 B/P (MAP) 144/76 (98) Pulse Ox 96 O2 Delivery Room Air Room Air Room Air Intake and Output 02/17/17 02/17/17 02/18/17 14:59 22:59 06:59 Intake Total 200 ml 1000 ml Output Total 250 ml 400 ml Balance -50 ml 600 ml RJ HELM MD Feb 18, 2017 12:19
[2017-02-18] MEDS ORDERED: KETOROLAC TROMETHAMINE 30 MG/ML INJ. IV ONE (12:30)
[2017-02-18] MEDS: oxyCODONE/APAP 7.5/325 1 TAB TABLET PO PRN ×3 (13:23→21:22)
[2017-02-18 15:00] VITALS: BP 139/86
[2017-02-18 19:18] VITALS: BP 140/87
[2017-02-18 23:00] VITALS: BP 146/88
--- NOTE | 2017-02-19 02:48 | CONS ---
DATE OF CONSULTATION: 02/17/2017 THE PATIENT'S ROOM: 418. HISTORY OF PRESENT ILLNESS: The patient is a very pleasant 41-year-old white male with 2-day history of right renal colic. The patient was seen in the Emergency Room 2 days ago, was diagnosed with a 4 mm right proximal ureteral calculus. The patient had been trying medical expulsive therapy at home, but was having continued pain and came back to the Emergency Room, was admitted for further pain control. The patient with prior history of 1 prior stone which he passed spontaneously. He is not sure it was on the left side or right side. 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 The patient's white count on admission was 14.2, creatinine 1.0. Urine showed 20-40 red cells, occasional white cell and no bacteria. The patient is afebrile. The patient's KUB today shows possible stone in the area of the right proximal ureter. PHYSICAL EXAMINATION: Abdomen is soft. He has a bandage in the midline of the abdomen from the prior colostomy takedown. He has some mild discomfort in the right flank and abdomen. Testes are descended bilaterally. Phallus within normal limits. The patient has a rubber band in the perianal area from his most recent colostomy takedown, therefore digital rectal examination was not performed. I talked with the patient concerning the stone and we discussed the options, alternatives, benefits, risks and possible complications of medical expulsive therapy versus surgical intervention with possible ESWL versus ureteral stenting or ureteroscopy and laser lithotripsy. Right now, the patient would like to try medical expulsive therapy. We therefore will have the patient push fluids, Flomax and strain the urine and then proceed accordingly. I certainly appreciate being allowed to participate in this patient's care. LISA CASTAÑEDA MD DR: SILVA/mark JOB#: [id number] / [id number]
[2017-02-19 03:17] VITALS: BP 154/100
[2017-02-19 07:00] VITALS: BP 151/92
[2017-02-19] MEDS: SENNOSIDES 8.6 MG TABLET PO PRN (08:16)
[2017-02-19] MEDS: TAMSULOSIN 0.4 MG CAP.ER.24H. PO SCH (08:17)
[2017-02-19] MEDS: oxyCODONE/APAP 7.5/325 1 TAB TABLET PO PRN (08:17)
--- NOTE | 2017-02-19 08:44 | PDOC ---
PROGRESS NOTES Subjective Subjective Pt. feeling well Objective Objective Vital Signs Date Time Temp Pulse Resp B/P (MAP) Pulse Ox O2 Delivery O2 Flow Rate FiO2 02/19/17 07:00 97.6 86 18 151/92 (111) 94 Room Air 97.6 Intake and Output 02/19/17 06:59 Intake Total 700 ml Output Total 850 ml Balance -150 ml Intake Oral 700 ml Output Urine Total 850 ml # Voids 2 Physical Exam Physical Exam No pain currently Plan Plan of Care Plan to continue with medical expulsive therapy Follow up with [facility] urology at [facility] in 1-2 weeks Pt. given instructions Problems Medical Problems: (1) Right nephrolithiasis Status: Acute (2) Severe pain Status: Acute Comment Review of Relevant I have reviewed the following items sofi (where applicable) has been applied. Labs Laboratory Tests Test 02/17/17 13:25 02/17/17 13:50 02/18/17 04:15 Urine Collection Type Unknown Urine Color Myesha Urine Clarity Clear Urine pH 5.0 Urine Specific [place] >=1.030 Urine Protein 30 mg/dL (NEG-TRACE) Urine Glucose (UA) Negative mg/dL (NEG) Urine Ketones (Stick) Trace mg/dL (NEG) Urine Blood Large (NEG) Urine Nitrite Negative (NEG) Urine Bilirubin Small (NEG) Urine Urobilinogen Dipstick 0.2 mg/dL (0.2 mg/dL) Urine Leukocyte Esterase Negative (NEG) Urine RBC 20-40 /HPF (0-2) Urine WBC Occ /HPF (0-4) Urine Bacteria 0 /HPF (0-FEW) Urine Hyaline Casts Few /HPF Urine Mucus Marked /LPF White Blood Count 14.2 x10^3/uL (4.0-11.0) 11.1 x10^3/uL (4.0-11.0) Red Blood Count 5.02 x10^6/uL (4.30-5.70) 4.50 x10^6/uL (4.30-5.70) Hemoglobin 14.0 g/dL (13.0-17.5) 12.5 g/dL (13.0-17.5) Hematocrit 42.5 % (39.0-53.0) 37.8 % (39.0-53.0) Mean Corpuscular Volume 85 fL (79-100) 84 fL (79-100) Mean Corpuscular Hemoglobin 28 pg (25-35) 28 pg (25-35) Mean Corpuscular Hemoglobin Concent 33 g/dL (31-37) 33 g/dL (31-37) Red Cell Distribution Width 14.0 % (11.5-14.5) 14.2 % (11.5-14.5) Platelet Count 283 x10^3/uL (140-400) 213 x10^3/uL (140-400) Neutrophils (%) (Auto) 87 % (31-73) 73 % (31-73) Lymphocytes (%) (Auto) 9 % (24-48) 19 % (24-48) Monocytes (%) (Auto) 3 % (0-9) 8 % (0-9) Eosinophils (%) (Auto) 0 % (0-3) 0 % (0-3) Basophils (%) (Auto) 0 % (0-3) 1 % (0-3) Neutrophils # (Auto) 12.3 x10^3uL (1.8-7.7) 8.0 x10^3uL (1.8-7.7) Lymphocytes # (Auto) 1.3 x10^3/uL (1.0-4.8) 2.1 x10^3/uL (1.0-4.8) Monocytes # (Auto) 0.5 x10^3/uL (0.0-1.1) 0.9 x10^3/uL (0.0-1.1) Eosinophils # (Auto) 0.0 x10^3/uL (0.0-0.7) 0.0 x10^3/uL (0.0-0.7) Basophils # (Auto) 0.0 x10^3/uL (0.0-0.2) 0.1 x10^3/uL (0.0-0.2) Segmented Neutrophils % 81 % (35-66) Lymphocytes % 16 % (24-48) Monocytes % 2 % (0-10) Basophils % 1 % (0-3) Platelet Estimate Adequate (ADEQUATE) Sodium Level 141 mmol/L (136-145) 141 mmol/L (136-145) Potassium Level 3.8 mmol/L (3.5-5.1) 3.6 mmol/L (3.5-5.1) Chloride Level 107 mmol/L (98-107) 107 mmol/L (98-107) Carbon Dioxide Level 23 mmol/L (21-32) 26 mmol/L (21-32) Anion Gap 11 (6-14) 8 (6-14) Blood Urea Nitrogen 11 mg/dL (8-26) 9 mg/dL (8-26) Creatinine 1.0 mg/dL (0.7-1.3) 1.1 mg/dL (0.7-1.3) Estimated GFR (Cockcroft-Gault) 82.3 73.8 Glucose Level 110 mg/dL (70-99) 92 mg/dL (70-99) Calcium Level 8.8 mg/dL (8.5-10.1) 8.4 mg/dL (8.5-10.1) Medications Current Medications Fentanyl Citrate (Fentanyl 2ml Vial) 25 mcg PRN Q15MIN PRN IV PAIN GREATER THAN 3/10 Last administered on 02/17/17 15:17; Start 02/17/17 at 13:45; Stop at 09:09; Status DC Sodium Chloride 1,000 ml @ 1,000 mls/hr Q1H IV Last administered on 02/17/17 14:03; Start 02/17/17 at 13:44; Stop 02/17/17 at 14:43; Status DC Ondansetron HCl (Zofran) 4 mg PRN Q8HRS PRN IV NAUSEA/VOMITING; Start 02/17/17 at 16:00; Stop 02/18/17 at 15:59; Status DC Morphine Sulfate 4 mg PRN Q2HR PRN IV PAIN Last administered on 02/17/17 16:59 ; Start 02/17/17 at 16:00; Stop 02/18/17 at 15:59; Status DC Sodium Chloride 1,000 ml @ 150 mls/hr Q6H40M IV Last administered on 15:15; Start 02/17/17 at 15:51; Stop 02/18/17 at 15:50; Status DC Hydromorphone HCl (Dilaudid) 1 mg PRN Q2HRS PRN IV PAIN Last administered on 18:39; Start 02/17/17 at 17:15 Tamsulosin HCl (Flomax) 0.4 mg DAILY PO Last administered on 02/19/17 08:17; Start 02/18/17 at 09:00 Ceftriaxone Sodium 1 gm/ Sodium Chloride 50 ml @ 100 mls/hr Q24H IV Last administered on 02/18/17 18:00; Start 02/17/17 at 18:00 Sennosides (Senna) 8.6 mg PRN BID PRN PO CONSTIPATION Last administered on 02/19 08:16; Start 02/17/17 at 20:15 Fentanyl Citrate (Fentanyl 2ml Vial) 50 mcg PRN Q15MIN PRN IV PAIN GREATER THAN 3/10; Start 02/18/17 at 09:15 Oxycodone/ Acetaminophen (Percocet 7.5/ 325) 1 tab PRN Q4HRS PRN PO PAIN Last administered on 02/19/17 08:17; Start 02/18/17 at 12:15 Ketorolac Tromethamine (Toradol) 30 mg 1X ONCE IV Last administered on 16:29; Start 02/18/17 at 12:30; Stop 02/18/17 at 12:31; Status DC Active Scripts Active Percocet 5-325 Mg Tablet (Oxycodone/Acetaminophen) 1 Each Tablet 1-2 Tab PO Q4- 6HRS Promethazine Hcl 25 Mg Tablet 1 Tab PO PRN Q6HRS Flomax (Tamsulosin Hcl) 0.4 Mg Cap.er.24h 1 Cap PO DAILY Cipro (Ciprofloxacin Hcl) 500 Mg Tablet 1 Tab PO BID Zofran Odt (Ondansetron) 4 Mg Tab.rapdis 1 Tab SL Q8HRS Reported Percocet 5-325 Mg Tablet (Oxycodone/Acetaminophen) 1 Each Tablet 1-2 Tab PO Q4- 6HRS Bactrim 400-80 Mg Tablet (Sulfamethoxazole/Trimethoprim) 1 Each Tablet Unknown Dose PO BID Vitals/I & O Vital Sign - Last 24 Hours 02/18/17 02/18/17 02/18/17 02/18/17 10:27 11:00 12:28 13:23 Temp 98.9 98.9 Pulse 59 Resp 18 B/P (MAP) 144/76 (98) Pulse Ox 96 O2 Delivery Room Air Room Air Room Air Room Air 02/18/17 02/18/17 02/18/17 02/18/17 13:24 15:00 17:01 18:23 Temp 98.7 98.7 Pulse 56 Resp 18 B/P (MAP) 139/86 (103) Pulse Ox 94 O2 Delivery Room Air Room Air Room Air Room Air 02/18/17 02/18/17 02/18/17 02/18/17 18:39 19:18 20:01 23:00 Temp 98.1 97.9 98.1 97.9 Pulse 62 64 Resp 18 18 B/P (MAP) 140/87 (104) 146/88 (107) Pulse Ox 95 96 O2 Delivery Room Air Room Air Room Air Room Air 02/19/17 02/19/17 03:17 07:00 Temp 98.1 97.6 98.1 97.6 Pulse 80 86 Resp 18 18 B/P (MAP) 154/100 (118) 151/92 (111) Pulse Ox 94 94 O2 Delivery Room Air Room Air Intake and Output 02/18/17 02/18/17 02/19/17 14:59 22:59 06:59 Intake Total 700 ml Output Total 325 ml 525 ml Balance -325 ml -525 ml 700 ml LISA CASTAÑEDA MD Feb 19, 2017 08:44
--- NOTE | 2017-02-19 15:36 | PDOC3 ---
Discharge Summary Visit Information Date of Admission: Feb 18, 2017 Date of Discharge: Feb 19, 2017 Admitting Diagnosis: flank pain Final Diagnosis flank pain renal colic, renal stone intractable pain, req. freq. IV pain meds treated for UTI, Uro wants abx to continue obesity, BMI 39 Problems Medical Problems: (1) Right nephrolithiasis Status: Acute (2) Severe pain Status: Acute Brief Hospital Course Allergies Allergies Coded Allergies Type Severity Reaction Last Updated Verified No Known Drug Allergies 01/28/15 No Vital Signs Vital Signs Date Time Temp Pulse Resp B/P (MAP) Pulse Ox O2 Delivery O2 Flow Rate FiO2 02/19/17 07:00 97.6 86 18 151/92 (111) 94 Room Air 97.6 Lab Results Laboratory Tests Test 02/18/17 04:15 White Blood Count 11.1 x10^3/uL (4.0-11.0) Red Blood Count 4.50 x10^6/uL (4.30-5.70) Hemoglobin 12.5 g/dL (13.0-17.5) Hematocrit 37.8 % (39.0-53.0) Mean Corpuscular Volume 84 fL (79-100) Mean Corpuscular Hemoglobin 28 pg (25-35) Mean Corpuscular Hemoglobin Concent 33 g/dL (31-37) Red Cell Distribution Width 14.2 % (11.5-14.5) Platelet Count 213 x10^3/uL (140-400) Neutrophils (%) (Auto) 73 % (31-73) Lymphocytes (%) (Auto) 19 % (24-48) Monocytes (%) (Auto) 8 % (0-9) Eosinophils (%) (Auto) 0 % (0-3) Basophils (%) (Auto) 1 % (0-3) Neutrophils # (Auto) 8.0 x10^3uL (1.8-7.7) Lymphocytes # (Auto) 2.1 x10^3/uL (1.0-4.8) Monocytes # (Auto) 0.9 x10^3/uL (0.0-1.1) Eosinophils # (Auto) 0.0 x10^3/uL (0.0-0.7) Basophils # (Auto) 0.1 x10^3/uL (0.0-0.2) Sodium Level 141 mmol/L (136-145) Potassium Level 3.6 mmol/L (3.5-5.1) Chloride Level 107 mmol/L (98-107) Carbon Dioxide Level 26 mmol/L (21-32) Anion Gap 8 (6-14) Blood Urea Nitrogen 9 mg/dL (8-26) Creatinine 1.1 mg/dL (0.7-1.3) Estimated GFR (Cockcroft-Gault) 73.8 Glucose Level 92 mg/dL (70-99) Calcium Level 8.4 mg/dL (8.5-10.1) Brief Hospital Course Mr. Danielson is a 41 old admit with acute flank pain, prior stone passed spont. KUB showed 4mm stone, Uro eval, Dr. Ward rec f/u at [facility] [place] Uro plan medical tx, cont current pt would like to pass spont. Discharge Information Condition at Discharge: Improved Follow Up: Weeks Disposition/Orders: D/C to Home Scheduled Ciprofloxacin Hcl (Cipro), 1 TAB PO BID Ondansetron (Zofran Odt), 1 TAB SL Q8HRS Oxycodone/Apap 5-325 (Percocet 5-325 Mg Tablet), 1-2 TAB PO Q4-6HRS Promethazine Hcl (Promethazine Hcl), 1 TAB PO PRN Q6HRS Sulfamethoxazole/Trimethoprim (Bactrim 400-80 Mg Tablet), Unknown Dose PO BID, ( Reported) Tamsulosin Hcl (Flomax), 1 CAP PO DAILY Discontinued Medications Oxycodone/Apap 5-325 (Percocet 5-325 Mg Tablet), 1-2 TAB PO Q4-6HRS, (Reported) RJ HELM MD Feb 19, 2017 15:36
== END 2017-02-19 10:15 | disposition home or self-care (01) | DRG 694 ==
LOC: ER 13:24 → 4 NORTH 15:50 → OBSVTOIN 02-18 09:10
PROVIDERS: ADMIT Internal Medicine; ATTEND Internal Medicine
DX: N20.2 Calculus of kidney with calculus of ureter (principal); N39.0 Urinary tract infection, site not specified; E66.9 Obesity, unspecified; Z68.39 Body mass index [BMI] 39.0-39.9, adult; Z82.49 Family history of ischemic heart disease and other diseases of the circulatory system; Z87.442 Personal history of urinary calculi; Z93.3 Colostomy status
CPT/HCPCS: 36415; 74000; 80048; 81001; 85007; 85027; 96361; 96374; 96376; G0378; G0379; J0696; J1170; J1885; J2270; J3010; J7030; 99285-25